=== PATIENT | female | born 1965 | race American Indian/Alaskan Native ===

== ENCOUNTER → 2024-07-16 | Outpatient (BNVA) | payer BC, OTHER, SELFPAY | END | disposition home or self-care (01) | PROVIDERS: PCP Nurse Practitioner Family; Referring Provider Nurse Practitioner Family; Visit Provider Urology | DX: N20.0 Calculus of kidney (principal); E78.00 Pure hypercholesterolemia, unspecified | CPT/HCPCS: 81003; 99212; G0463 ==

== ENCOUNTER → 2024-08-06 | Outpatient (CLI) | payer BC, SELFPAY ==
--- NOTE | 2024-08-06 14:00 | XR_ITS ---
Examination: Breast ultrasound complete, bilateral Date and time of exam: August 06, 2024 1308 hours INDICATIONS: Bilateral breast sonography June 30, 2022 right breast retroareolar nodule 6 x 5 mm Technique: Real-time grayscale ultrasonographic imaging bilateral breasts, including all 4 quadrants as well as nipple retroareolar and axillary regions. Findings: Sonographic images right breast 12:00 cyst 5 x 5 mm 6:00 cystic or solid like area 7 x 8 mm 8:00 cyst 5 x 5 4 mm Retroareolar nodule circumscribed 5 x 4 mm Sonographic images left breast 4:00 cyst 4 x 5 mm No solid nodules Multiple smaller cysts IMPRESSION: Recommend 6 month follow-up right breast sonogram to document stability of 6:00 nodule
--- NOTE | 2024-08-06 15:00 | XR_ITS ---
Examination: Diagnostic digital mammography, bilateral Computer aided detection 3-D breast Tomosynthesis, bilateral Date and time of exam: August 06, 2024 1348 hours INDICATIONS: 6 mm retroareolar nodule right breast on mammogram July 22, 2022 Technique: Nonmagnified MLO, CC views of the breasts to been obtained, reconstructed from 3-D Tomosynthesis images. R2 computer aided detection program utilized for evaluation of suspicious masses and/or abnormal calcifications. 3-D Tomosynthesis images obtained. Findings: The breasts are heterogeneously dense, which may obscure small masses Benign calcifications 5 mm round circumscribed nodule outer right breast on the CC view No suspicious masses Impression: BI-RADS Category 2: Benign findings Recommend yearly follow-up mammography.
== END | disposition home or self-care (01) ==
LOC: CDIM 12:17
PROVIDERS: Referring Provider Physician Assistant; Visit Provider Physician Assistant
DX: R92.323 Mammographic fibroglandular density, bilateral breasts (principal); R92.1 Mammographic calcification found on diagnostic imaging of breast; N63.15 Unspecified lump in the right breast, overlapping quadrants
CPT/HCPCS: 76641; 77062; 77066; G0279

== ENCOUNTER → 2024-08-21 | Outpatient (CLI) | payer BC, OTHER, SELFPAY ==
--- NOTE | 2024-08-21 08:00 | XR_ITS ---
Examination: CT abdomen and pelvis without contrast. Coronal 3-D reconstructions. Sagittal 2-D reconstructions. Date and time of exam:August 21, 2024 0813 hours Comparison May 11, 2023 INDICATIONS: Flank pain history kidney stones months CTDI: vol (mGy): 12.1 DLP: (mGycm): 638 Technique: Axial images of the abdomen have been obtained, 3 mm slice thickness Intravenous contrast material has not been administered. Low dose protocols were performed. One or more of the following dose reduction techniques were used; automated exposure control, adjustment of the mA and/or KV according to patient size, use of iterative reconstruction technique. Findings: Fatty infiltration throughout the liver, 5 cm liver cyst again noted No gallstones No pancreatic mass 2 mm right renal calculus Multiple left renal calculi, the largest in the left renal pelvis 17 mm with mild left hydronephrosis No ureteral calculi No bowel obstruction Normal appendix Colonic diverticulosis No bladder mass or bladder calculi IMPRESSION: Bilateral renal calculi 17 mm calculus in the left renal pelvis with mild left hydronephrosis
== END | disposition home or self-care (01) ==
LOC: CCTX 07:43
PROVIDERS: PCP Physician Assistant; Referring Provider Urology; Visit Provider Urology
DX: N20.0 Calculus of kidney (principal); N13.30 Unspecified hydronephrosis
CPT/HCPCS: 74176

== ENCOUNTER → 2024-08-24 | Outpatient (BNVA) | payer BC, OTHER, SELFPAY | END | disposition home or self-care (01) | PROVIDERS: PCP Physician Assistant; Referring Provider Physician Assistant; Visit Provider Urology | DX: N20.0 Calculus of kidney (principal); E78.00 Pure hypercholesterolemia, unspecified | CPT/HCPCS: 81003; 99212; G0463 ==

== ENCOUNTER → 2025-01-16 | Outpatient (CLI) | payer BC, OTHER, SELFPAY ==
--- NOTE | 2025-01-16 09:00 | XR_ITS ---
Examination: Abdomen sonogram, complete Date and time of exam: January 16, 2025, 0906 hours INDICATIONS: Abdominal pain radiating to the lower back beginning 5 months ago, history left kidney stones. Technique: Multiple real-time grayscale transabdominal sonographic images of the abdomen have been obtained. Findings: Normal gallbladder. Common bile duct 0.6 cm no common bile duct stones Pancreatic head 2.5 cm Aorta not enlarged Liver 15.3 cm fatty infiltration right lobe liver cyst 5.2 cm Normal hepatopedal portal venous flow Patent IVC Right kidney 9.9 cm cortex 1.6 cm Left kidney 10.3 cm cortex 1.6 cm Mild left hydronephrosis Multiple left renal calculi, the largest in the lower pole 17 mm, 12 mm Spleen 8.1 cm IMPRESSION: Normal gallbladder Multiple left renal calculi, mild left hydronephrosis
--- NOTE | 2025-01-16 09:30 | XR_ITS ---
Examination: Transvaginal ultrasound of the pelvis, complete Technique: Transvaginal sonographic images pelvis performed using diez scale imaging Exam date and time: January 16, 2025 0923 hours INDICATIONS: Lower pelvic pain months FINDINGS: Absent uterus Ovaries obscured by bowel gas IMPRESSION: Limited study No solid pelvic mass No free fluid in the pelvis.
== END | disposition home or self-care (01) ==
LOC: CDIM 08:45
PROVIDERS: PCP Physician Assistant; Referring Provider Physician Assistant; Visit Provider Physician Assistant
DX: N13.2 Hydronephrosis with renal and ureteral calculous obstruction (principal); R10.2 Pelvic and perineal pain; Z87.442 Personal history of urinary calculi
CPT/HCPCS: 76700; 76830

== ENCOUNTER → 2025-02-18 | Outpatient (CLI) | payer BC, OTHER, SELFPAY ==
--- NOTE | 2025-02-18 15:03 | XR_ITS ---
Examination: Abdomen AP single view Technique: AP portable supine abdomen, single view Exam date and time: February 18, 2025, 1511 hours INDICATIONS: History of kidney stones with flank pain FINDINGS: Large, 32 mm, staghorn calculus midpole left kidney and smaller calculi lower pole No ureteral calculi depicted IMPRESSION: Multiple left renal calculi
== END | disposition home or self-care (01) ==
PROVIDERS: PCP Physician Assistant; Referring Provider Physician Assistant; Visit Provider Physician Assistant
DX: N20.0 Calculus of kidney (principal)
CPT/HCPCS: 74018

== ENCOUNTER → 2025-02-18 | Outpatient (BNVA) | payer BC, OTHER, SELFPAY | END | disposition home or self-care (01) | PROVIDERS: PCP Nurse Practitioner Family; Referring Provider Nurse Practitioner Family; Visit Provider Physician Assistant | DX: N13.2 Hydronephrosis with renal and ureteral calculous obstruction (principal); Z87.442 Personal history of urinary calculi | CPT/HCPCS: Q3014 ==

== ENCOUNTER 2025-02-22 07:55 | Day surgery (SDC) | payer BC, OTHER, SELFPAY ==
--- NOTE | 2025-02-21 08:50 | EKG_ITS ---
[facility] Test Date: 2025-02-21 Pat Name: TOSHA GLEASON Department: Room: - Gender: Female [place]: VLAD : 1965 Requested By: Param Greenberg Order Number: [id number] Reading MD: Param Greenberg Measurements Intervals [place] Rate: 57 P: 39 NC: 160 QRS: -43 QRSD: 94 T: 70 QT: 408 QTc: 400 Interpretive Statements SINUS BRADYCARDIA MARKED LEFT AXIS DEVIATION [QRS AXIS < -30] PATTERN CONSISTENT WITH PULMONARY DISEASE Compared to ECG 09/20/2018 14:08:20 No significant changes /store/S0/[id number]
[2025-02-21 09:19] VITALS: BMI 33.7
[2025-02-21 10:24] LABS: Alanine Aminotransferase 14 U/L (10-49); Albumin, Serum 4.7 gm/dL (3.4-4.8); Albumin/Globulin Ratio 1.9 (1.2-2.2); Alkaline Phosphatase 112 U/L (46-116); Anion Gap 11 (7-16); Aspartate Amino Transferase 20 U/L (0-34); BUN/Creatinine Ratio 13 Ratio (12-20); Bilirubin,Total 0.4 mg/dL (0.3-1.2); Blood Urea Nitrogen 10 mg/dL (9-23); Calcium 9.8 mg/dL (8.3-10.6); Calcium (Corrected) 9.8 mg/dL (8.5-10.1); Carbon Dioxide 28.3 mMol/L (20.0-31.0); Chloride 107 mMol/L (98-107); Creatinine (Component) 0.8 mg/dL (0.6-1.3); Estimated Creatinine Clearance 77.9 mL/min (>60); Globulin 2.5 gm/dL (2.3-3.5); Glucose 100 mg/dL (74-106); Osmolality,Calculated 289 (275-295); Potassium 4.0 mMol/L (3.4-5.1); Sodium 146 mMol/L (136-145); Total Protein 7.2 gm/dL (5.7-8.2); eGFR > 60 See Note
[2025-02-22] VITALS (7 sets, daily range): BP systolic 123–146; BP diastolic 55–80; PULSE 57–71; RESP 17–19; TEMP 36.4–36.8; O2SAT 96–100; BMI 33.3
--- NOTE | 2025-02-22 08:40 | SUR.PREOP ---
Patient expressed gratitude for prayer before their procedure.
--- NOTE | 2025-02-22 08:40 | XR_ITS ---
EXAMINATION: OR retrograde pyelogram left with without KUB Fluoroscopy 12 spot fluoroscopic films of the abdomen Date and time: February 22, 2025, 1336 hours INDICATIONS: History flank pain, 17 mm calculus in the left renal pelvis with mild left hydronephrosis on CT stone study August 21, 2024 TECHNIQUE AND FINDINGS: 12. Spot fluoroscopic films of the abdomen with opacification of the renal collecting system showing dilatation Fluoroscopy 127 seconds radiation dose 37.5 mGy Left ureteral stent satisfactory position IMPRESSION: Retrograde pyelogram as above
--- NOTE | 2025-02-22 08:40 | SUR.PREOP ---
Patient expressed gratitude for prayer before their procedure.
[2025-02-22] MEDS: RINGERS LACTATED 1000 ML 1,000 ML 20 ML IV (08:54)
[2025-02-22] MEDS: VANCOMYCIN/NS 1 GM IVPB 200 ML IV (08:54)
--- NOTE | 2025-02-22 14:05 | SUR.PHASEI ---
1407 Patient arrived to recovery resting comfortably in [facility], on oxygen 3L via nasal cannula, drowsy and able to arouse with verbal prompting, breathing unlabored, vital signs stable, denies pain, report received from Reinier MAKI and Dr. Fowler
--- NOTE | 2025-02-22 15:10 | SUR.PHASEII ---
1510 Patient meets discharge criteria from recovery, awake and alert, breathing unlabored, vital signs stable, denies pain and nausea, voided in the restroom two times, able to dress herself into her clothing, discharge instructions given to patients and patients , signed discharge instructions. Patient given all her belongings prior to discharge, transported via wheelchair and left in a private vehicle.
--- NOTE | 2025-02-22 17:08 | ESOP_ITS ---
RE: TOSHA GLEASON : 1965 DATE OF OPERATION: 02/22/2025 PREPROCEDURE DIAGNOSES: Obstructing partial staghorn stone, left, and hydronephrosis, left. POSTPROCEDURE DIAGNOSIS: Status post placement of indwelling ureteral stent, left. PROCEDURES PERFORMED: Cystoscopy, retrograde pyelogram under fluoroscopic control, and placement of indwelling ureteral stent, left. SURGEON: Cyril Willoughby MD. [employer] PROFESSOR SURGEON: Katie Stubbs MD. ANESTHESIA: General. INDICATIONS: This patient is a 59-year-old lady who is referred for subspecialty endourology management of complex partial staghorn stone of the left kidney with segmental hydronephrosis of the upper pole. The patient at this point comes for renal decompression. Further treatment will be planned with percutaneous surgery at a later point. We discussed with the patient the indication for treatment especially in view of a possible infected urine in the upper pole and in preparation for percutaneous surgery to obtain urine from the obstructed upper pole and drain the upper pole and treat with appropriate antibiotics if needed. The patient acknowledged of risks benefits and alternatives, consents to this treatment approach. DESCRIPTION OF FINDINGS: Fluoroscopically the partial staghorn stone filling the renal pelvis and lower calyces is readily identified. Endoscopically the bladder mucosa is unremarkable. Retrograde pyelogram shows a normal ureter up to the ureteropelvic junction. Mild distention of the lower pole calyces and moderate to severe distention of the upper pole calyces is noted. An indwelling ureteral stent is placed. Urine from the obstructed upper pole is obtained for culture and sensitivity testing. DESCRIPTION OF PROCEDURE: Prior to initiation of anesthesia the patient is appropriately identified by the surgeon and operating room personnel. The indication for treatment site and scope of treatment are reconfirmed with the patient. The patient received perioperative antibiotics intravenously. After induction of general anesthesia the patient is positioned on the operating table in lithotomy position. The outer genitalia is prepped and draped in a sterile fashion. Cystoscopy is performed using a 21-Andorran cystoscope. Cystoscopy reveals the aforementioned findings. A 5-Andorran angiographic catheter is introduced into the left ureteral orifice over a guidewire. The guidewire is removed and under fluoroscopic control contrast is injected. This shows the aforementioned findings. The guidewire is reintroduced and under fluoroscopic control can be passed by the obstructing renal pelvic stone and into the upper pole. The angiographic catheter follows this guidewire into the upper pole. The guidewire is removed under pressure slightly bloody but otherwise clear urine drains from the upper pole. An aliquot is sent for culture and sensitivity testing. Next a super stiff wire is placed to allow for placement of the decompressing indwelling ureteral stent. This wire is placed through the angiographic catheter. The angiographic catheter is withdrawn and replaced by the indwelling ureteral stent which can be placed with its proximal end in the obstructed upper pole, the distal end is placed correctly in the bladder. The patient is awakened and returned to recovery where she arrived in satisfactory condition. ESTIMATED BLOOD LOSS: Minimal. COMPLICATIONS: None. SPECIMENS: Urine from obstructed left upper pole for culture and sensitivity testing. DISPOSITION: The patient will be discharged home from the outpatient surgical area. Plans will be made to bring the patient back for percutaneous renal stone surgery in the near future. DT: 14:23:56 TT: 17:07:00 Ref: [id number] - TID: [id number] [facility]
== END 2025-02-22 15:10 | disposition home or self-care (01) ==
PROVIDERS: Anesthesiology; Specialist; PCP Physician Assistant; Referring Provider Urology; Visit Provider Urology
PROC: 0TJB8ZZ Inspection of Bladder, Via Natural or Artificial Opening Endoscopic (ICD-10-PCS; CPT 52000; principal; 2025-02-22 10:00)
DX: N13.2 Hydronephrosis with renal and ureteral calculous obstruction (principal); Z01.810 Encounter for preprocedural cardiovascular examination
CPT/HCPCS: 52332; 36415; 74420; 80053; 87086; 93005; A4217; A4314; A4649; C1769; C1894; C2617; J0131; J1100; J1580; J1885; J1938; J2250; J2405; J2704; J3010; J3373; J3490; J7120

== ENCOUNTER 2025-03-11 09:05 | Emergency (ER) | payer BC, OTHER, SELFPAY ==
[2025-03-11 09:06] VITALS: BMI 33.3
[2025-03-11 09:14] VITALS: BP 140/79; PULSE 71; RESP 16; TEMP 36.7; O2SAT 96
--- NOTE | 2025-03-11 09:16 | XR_ITS ---
EXAMINATION: PA chest single view TECHNIQUE: Upright PA chest single view Date and time: February, 0917 hours INDICATIONS: Chest pain today. FINDINGS: Normal heart size Lungs are clear. Osseous structures are intact IMPRESSION: No active disease
--- NOTE | 2025-03-11 09:16 | EKG_ITS ---
[facility] (Formerly [facility]) Test Date: 2025-03-11 Pat Name: TOSHA GLEASON Department: Room: - Gender: Female [place]: : 1965 Requested By: Casey Fletcher Order Number: [id number] Reading MD: Casey Fletcher Measurements Intervals [place] Rate: 74 P: 71 IN: 159 QRS: -55 QRSD: 94 T: 53 QT: 378 QTc: 422 Interpretive Statements SINUS RHYTHM PATTERN CONSISTENT WITH PULMONARY DISEASE LEFT ANTERIOR FASCICULAR BLOCK [QRS AXIS <= -45, QR IN I, RS IN II] Compared to ECG 02/21/2025 09:40:51 Left anterior fascicular block now present Sinus bradycardia no longer present Left-axis deviation no longer present /store/S0/[id number].pdf
--- NOTE | 2025-03-11 09:16 | PD.EDCHEST ---
ED Chest Pain RME/HPI General Chief Complaint: Chest Pain Stated Complaint: L CHEST PAIN, SHOULDER PAIN Time Seen by Provider: 03/11/25 09:10 Source: patient Arrival date/time: 03/11/25 09:05 59-year-old female with a history of hyperlipidemia presents to the emergency room with a chief complaint of 7 out of 10 left-sided sternal chest pain that radiates down her left shoulder and arm x 2 days Mode of arrival: ambulatory Limitations: no limitations Related Data Home Medications ?Medication ?Instructions ?Recorded ?Confirmed amoxicillin 875 mg-potassium 1 tab PO Q12H 02/21/25 02/21/25 clavulanate 125 mg tablet atorvastatin 20 mg tablet 20 mg PO DAILY 02/21/25 02/21/25 Previous Rx's ?Medication ?Instructions ?Recorded tramadol 50 mg tablet 50 mg PO Q8H PRN pain #14 tabs 02/22/25 Allergies Allergy/AdvReac Type Severity Reaction Status Date / Time cephalexin (From Keflex) Allergy Intermediate Hives Verified 02/22/25 08:07 meperidine (From Demerol) Allergy Intermediate Hives Verified 02/22/25 08:07 ofloxacin (From Floxin) Allergy Intermediate Hives Verified 02/22/25 08:07 Review of Systems Review of Systems Systems Reviewed: All systems reviewed, normal except as documented Constitutional Constitutional: Reports system reviewed and no additional complaints, except as documented, Denies fatigue, Denies fever(s), Denies headache(s) and Denies weakness Eyes Eyes: Reports system reviewed and no additional complaints, except as documented, Denies blurry vision and Denies change in vision ENT Ears, Nose, Mouth, and Throat: Reports system reviewed and no additional complaints, except as documented, Denies otalgia, Denies headache(s), Denies nasal congestion, Denies throat swelling and Denies vertigo Cardiovascular Cardiovascular: Reports system reviewed and no additional complaints, except as documented, Reports chest pain, Reports chest pain at rest, Reports chest pain with activity, Denies dyspnea, Denies dyspnea on exertion, Reports palpitations and Reports radiating jaw, neck or arm pain Respiratory Respiratory: Reports system reviewed and no additional complaints, except as documented, Denies chest congestion, Denies cough, Denies dyspnea, Denies dyspnea on exertion and Denies wheezing Gastrointestinal Gastrointestinal: Reports system reviewed and no additional complaints, except as documented, Denies abdominal pain, Denies cramping, Denies nausea and Denies vomiting Genitourinary Genitourinary: Reports system reviewed and no additional complaints, except as documented Musculoskeletal Musculoskeletal: Reports system reviewed and no additional complaints, except as documented and Denies back pain Integumentary/Breasts Skin/Breast: Reports system reviewed and no additional complaints, except as documented and Denies wounds Neurologic Neurologic: Reports system reviewed and no additional complaints, except as documented, Denies confusion, Denies headache(s), Denies lack of coordination, Denies vertigo and Denies weakness Psychiatric Psychiatric: Reports system reviewed and no additional complaints, except as documented, Denies anxiety, Denies confusion, Denies depression, Denies paranoia, Denies suicidal ideation and Denies tactile hallucinations Endocrine Endocrine: Reports system reviewed and no additional complaints, except as documented, Denies fatigue and Reports palpitations Hematologic/Lymphatic Hematologic/Lymphatic: Reports system reviewed and no additional complaints, except as documented and Denies lymphadenopathy Allergic/Immunologic Allergic/Immunologic: Reports system reviewed and no additional complaints, except as documented, Denies throat swelling, Denies urticaria and Denies wheezing ED Exam General Limitations: Present no limitations General appearance: Present alert and in no apparent distress Head Head exam: Present atraumatic Eye Eye exam: Present normal appearance, PERRL and EOMI ENT ENT exam: Present normal exam, normal oropharynx and mucous membranes moist Neck Neck exam: Present normal inspection, full ROM and trachea midline Chest Chest inspection: Present normal inspection and symmetric chest wall rise Respiratory Respiratory exam: Present normal lung sounds bilaterally; Absent respiratory distress, wheezes, stridor, accessory muscle use or prolonged expiratory phase Cardiovascular Cardiovascular exam: Present regular rate, normal rhythm, normal heart sounds, +S1 and +S2; Absent bradycardia, tachycardia, irregular rhythm, systolic murmur, diastolic murmur, rubs, gallop, clicks or JVD Abdominal Exam Abdominal exam: Present soft and normal bowel sounds Extremities Exam Extremities exam: Present normal inspection and full ROM Back Exam Back exam: Present normal inspection and full ROM Neurological Exam Neurological exam: Present alert, oriented X3 and CN II-XII intact Psychiatric Psychiatric exam: Present normal affect and normal mood Skin Skin exam: Present warm, dry, intact and normal color Course Quality Measures none Orders Category Date Time Status EKG (ED ONLY) *Do not use* NOW Care 03/11/25 09:16 Completed EKG (ED Only) Stat Exams 03/11/25 09:16 Draft XR chest 1V portable Stat Exams 03/11/25 09:16 Completed B-Type Natriuretic Peptide Stat Lab 03/11/25 09:31 Completed CBC Stat Lab 03/11/25 09:31 Completed Comprehensive Metabolic Panel Stat Lab 03/11/25 09:31 Completed Drug Screen,Urine Stat Lab 03/11/25 09:16 Completed Free T4 (Free Thyroxine) Stat Lab 03/11/25 09:31 Completed Magnesium Stat Lab 03/11/25 09:31 Completed Partial Thromboplastin Time Stat Lab 03/11/25 09:31 Completed Prothrombin Time with INR Stat Lab 03/11/25 09:31 Completed TSH [Thyroid Stimulating Hormone] Stat Lab 03/11/25 09:31 Completed Troponin I Stat Lab 03/11/25 09:31 Completed Urinalysis, C/S if Indicated Stat Lab 03/11/25 09:56 Completed Urine Culture Stat Lab 03/11/25 09:56 Received Vital Signs Vital signs: Vital Signs Temperature 98.0 F 03/11/25 09:14 Pulse Rate 71 03/11/25 09:14 Respiratory Rate 16 03/11/25 09:14 Blood Pressure 140/79 H 03/11/25 09:14 Pulse Oximetry (%) 96 03/11/25 09:14 Oxygen Delivery Method Room Air 03/11/25 09:14 Chest Pain MDM Narrative MDM Narrative:: 59-year-old female with a history of hyperlipidemia presents to the emergency room with a chief complaint of 7 out of 10 left-sided sternal chest pain that radiates down her left shoulder and arm x 2 days Patient is hemodynamically stable and in no apparent distress Physical examination shows clear bilateral lung sounds there is no wheezing or any abnormal breath sounds The patient has a strong and regular rhythm S1 and S2 noted no murmurs. No JVD, no clicks no gallops EKG shows normal sinus rhythm at [address] deviation. CBC CMP troponin BNP were all within normal limits Chest x-ray was negative for any pneumonic infiltrates Patient was discharged and educated to follow-up with primary care provider in the next 24 to 48 hours and return to the emergency room for any evidence of worsening signs or symptoms Patient data External records reviewed:: [facility] previous records Clinical information provided by:: patient Social determinants that could affect healthcare access:: none Patient has the following chronic illnesses:: Hyperlipidemia How is presenting disease/condition affected by chronic disease/condition?: uneffected by Evaluation data The following diagnostics were reviewed and interpreted by me:: lab results and radiology exam(s) Lab and/or radiology exams considered but not ordered:: Labs and radiology exams considered and ordered Interpretation Summary: Chest [id number]: Normal heart size Lungs are clear. Osseous structures are intact IMPRESSION: No active disease Medications / Prescriptions Medications or Prescriptions considered but not ordered:: No medication given Medication administrations:: No medication given Consultations Consultation(s) initiated? (list below): No Diagnosis Chest Pain Differential Diagnosis: stable angina, unstable angina pectoris, atypical chest pain, st elevation myocardial infarction, costochondritis and chest pain Most likely diagnosis given after review of the tests above:: Chest pain Admission Indicated Admission indicated?: not indicated Admission Request Was there a request for admission?: No Disposition Plan Disposition Plan: Discharge Discharge Attestation Discharge Attestation: The patient and all family members were given an opportunity to ask questions and understood the discharge instructions. Discharge instructions specifically effects, indications for sooner follow up or return to the emergency department, and the expected course of current diagnosis. Patient condition: Stable Discharge Plan Plan Patient Disposition: HOME (Self Care) Discharge Disposition comment: Stable Prescriptions/Referrals Prescriptions/Med Rec: No Action atorvastatin 20 mg tablet 20 mg PO DAILY Patient Comments: TAKE 1 TABLET BY MOUTH EVERY DAY amoxicillin-pot clavulanate 875-125 mg tablet 1 tab PO Q12H Patient Comments: TAKE 1 TABLET BY MOUTH EVERY 12 HOURS tramadol 50 mg tablet 50 mg PO Q8H PRN (Reason: pain) Qty: 14 0RF Referrals: Korey Anthony PA-C [Primary Care Provider] - In 1 week Problem List Clinical Impression: Chest pain Patient/Caregiver Discharge Instructions Education Materials: ED Chest Pain, Noncardiac Additional Instructions: Please follow-up with your primary care provider in the next 24 to 48 hours Your cardiac examination today was within normal limits. Your blood work and urinalysis were within normal limits. Electrocardiogram that we completed today at bedside was within normal limits. For any evidence of worsening signs or symptoms return to emergency room immediately Print Language: Australian Stand Alone Forms: Francesca Award Info., Work/School Release, Patient Portal Info Letter FRANKLIN/EDWIN Supervising Physician ETHAN Supervising Physician: Dr. Comer
[2025-03-11 09:45] LABS: Basophils # (Auto) 0.0 Thou/mm3 (0.0-0.2); Basophils % (Auto) 0 % (0-2.5); Eosinophils # (Auto) 0.1 Thou/mm3 (0.0-0.5); Eosinophils % (Auto) 1 % (0-10); Hematocrit 41.8 % (36.0-46.0); Hemoglobin 13.5 g/dL (12.0-16.0); Immature Granulocytes Auto 0.04 Thou/mm3 (0.00-0.00); Lymphocytes # (Auto) 2.0 Thou/mm3 (1.0-4.8); Lymphocytes % (Auto) 21 % (10-50); Mean Corpuscular HGB Conc 32.3 g/dl (31.0-37.0); Mean Corpuscular Hemoglobin 27.7 pg (25.0-35.0); Mean Corpuscular Volume 86 fL (80-100); Monocytes # (Auto) 0.6 Thou/mm3 (0.0-0.8); Monocytes % (Auto) 6 % (0-12); Neutrophils # (Auto) 7.0 Thou/mm3 (1.8-7.7); Neutrophils % (Auto) 71 % (37-80); Nucleated Red Blood Cell # 0.00 Thou/mm3 (0.00-0.00); Nucleated Red Blood Cell % 0 /100 WBC (0); Platelet Count 333 Thou/mm3 (140-440); RDW Standard Deviation 42.9 fL (36.4-46.3); Red Blood Count 4.87 Miln/mm3 (4.00-5.20); White Blood Count 9.8 Thou/mm3 (3.6-11.0)
[2025-03-11 10:08] LABS: INR 1.0 (0.9-1.3); Partial Thromboplastin Time 24.2 Seconds (22.0-36.0); Prothrombin Time 10.4 Seconds (9.0-12.2)
[2025-03-11 10:11] LABS: Collection Type, Urine Clean Catch
[2025-03-11 10:14] LABS: Alanine Aminotransferase 13 U/L (10-49); Albumin, Serum 4.9 gm/dL (3.4-4.8); Albumin/Globulin Ratio 1.9 (1.2-2.2); Alkaline Phosphatase 121 U/L (46-116); Anion Gap 10 (7-16); Aspartate Amino Transferase 23 U/L (0-34); BUN/Creatinine Ratio 11 Ratio (12-20); Bilirubin,Total 0.7 mg/dL (0.3-1.2); Blood Urea Nitrogen 9 mg/dL (9-23); Calcium 9.7 mg/dL (8.3-10.6); Calcium (Corrected) 9.7 mg/dL (8.5-10.1); Carbon Dioxide 27.3 mMol/L (20.0-31.0); Chloride 105 mMol/L (98-107); Creatinine (Component) 0.8 mg/dL (0.6-1.3); Estimated Creatinine Clearance 77.4 mL/min (>60); Free T4 (Free Thyroxine) 1.01 ng/dL (0.89-1.76); Globulin 2.6 gm/dL (2.3-3.5); Glucose 106 mg/dL (74-106); Magnesium 1.8 mg/dL (1.6-2.6); Osmolality,Calculated 281 (275-295); Potassium 4.1 mMol/L (3.4-5.1); Sodium 142 mMol/L (136-145); Thyroid Stimulating Hormone 1.34 uIU/mL (0.55-4.78); Total Protein 7.5 gm/dL (5.7-8.2); Troponin I < 0.002 ng/mL (0.0-0.045); eGFR > 60 See Note
[2025-03-11 10:42] LABS: Bacteria,Urine Rare; Bilirubin,Urine Negative (Negative); Blood,Urine 1+ (Negative); Color,Urine Lt-Yellow (Lt Yel-Yel); Glucose, Urine Negative (Negative); Ketones,Urine Negative (Negative); Leukocyte Esterase,Urine Positive (Negative); Nitrite,Urine Negative (Negative); PH,Urine 7.0 (5.0-7.0); Protein,Urine Trace (Neg - Trace); RBC,Urine 21 /hpf (0-3); Specific Gravity,Urine 1.014 (1.001-1.035); Squamous Epithelial Cell,Urine 3 /hpf (0-5); Urobilinogen,Urine Negative mg/dL (0.0-1.0); WBC,Urine 58 /hpf (0-5)
[2025-03-11 10:50] LABS: Clarity,Urine Hazy (Clear/Hazy); Culture Indicated,Urine Yes
[2025-03-11 11:07] LABS: Amphetamine/Methamp Scrn,U Negative (Negative); Barbiturate Screen,Urine Negative (Negative); Benzodiazepines Screen,Urine Negative (Negative); Benzoylecgonine Screen, Ur Negative (Negative); Fentanyl Screen,Urine Negative (Negative); Opiate Screen,Urine Negative (Negative); THC Screen,Urine Negative (Negative)
[2025-03-11 11:40] LABS: B-Type Natriuretic Peptide < 20 pg/mL (0-100)
== END 2025-03-11 12:13 | disposition home or self-care (01) ==
PROVIDERS: Nurse Practitioner Family; Emergency Provider Emergency Medicine; PCP Physician Assistant
DX: R07.2 Precordial pain (principal); I44.4 Left anterior fascicular block; E78.5 Hyperlipidemia, unspecified
CPT/HCPCS: 36415; 71045; 80053; 80307; 81001; 83735; 83880; 84439; 84443; 84484; 85025; 85610; 85730; 87086; 93005; 99283

== ENCOUNTER → 2025-03-14 | Outpatient (CLI) | payer BC, OTHER, SELFPAY ==
--- NOTE | 2025-03-14 09:38 | XR_ITS ---
Examination: Shoulder, left, 3 views Technique: Shoulder AP internal rotation, AP external rotation, Y view shoulder, 3 views Exam date and time : March 14, 2025, 0944 hours, comparison October 30, 2022 INDICATIONS: Left shoulder pain beginning 3 days ago FINDINGS: Moderate left shoulder osteoarthritis No shoulder fracture or dislocation No calcific tendinitis IMPRESSION: Moderate left shoulder osteoarthritis
== END | disposition home or self-care (01) ==
LOC: CDIM 09:30
PROVIDERS: PCP Physician Assistant; Referring Provider Physician Assistant; Visit Provider Physician Assistant
DX: M19.012 Primary osteoarthritis, left shoulder (principal)
CPT/HCPCS: 73030

== ENCOUNTER → 2025-04-03 | Outpatient (CLI) | payer BC, OTHER, SELFPAY | END | disposition home or self-care (01) | PROVIDERS: PCP Physician Assistant; Referring Provider Urology; Visit Provider Urology | DX: N39.0 Urinary tract infection, site not specified (principal) | CPT/HCPCS: 87086 ==

== ENCOUNTER 2025-04-11 05:45 | Day surgery (SDC) | payer BC, OTHER, SELFPAY ==
[2025-04-10 11:30] VITALS: BMI 32.8
[2025-04-10 12:46] LABS: Alanine Aminotransferase 14 U/L (10-49); Albumin, Serum 4.9 gm/dL (3.4-4.8); Albumin/Globulin Ratio 1.6 (1.2-2.2); Alkaline Phosphatase 128 U/L (46-116); Anion Gap 12 (7-16); Aspartate Amino Transferase 18 U/L (0-34); BUN/Creatinine Ratio 14 Ratio (12-20); Bilirubin,Total 0.4 mg/dL (0.3-1.2); Blood Urea Nitrogen 10 mg/dL (9-23); Calcium 9.8 mg/dL (8.3-10.6); Calcium (Corrected) 9.8 mg/dL (8.5-10.1); Carbon Dioxide 28.0 mMol/L (20.0-31.0); Chloride 105 mMol/L (98-107); Creatinine (Component) 0.7 mg/dL (0.6-1.3); Estimated Creatinine Clearance 91.1 mL/min (>60); Globulin 3.0 gm/dL (2.3-3.5); Glucose 99 mg/dL (74-106); Osmolality,Calculated 287 (275-295); Potassium 4.2 mMol/L (3.4-5.1); Sodium 145 mMol/L (136-145); Total Protein 7.9 gm/dL (5.7-8.2); eGFR > 60 See Note
[2025-04-11] VITALS (9 sets, daily range): BP systolic 113–137; BP diastolic 61–79; PULSE 54–75; RESP 12–21; TEMP 36.1–36.2; O2SAT 96–100; BMI 32.2
[2025-04-11] MEDS: RINGERS LACTATED 1000 ML 1,000 ML 20 ML IV (07:30)
--- NOTE | 2025-04-11 07:30 | XR_ITS ---
EXAMINATION: Retrograde pyelogram left with without KUB Fluoroscopy 10 spot fluoroscopic films of the abdomen Date and time: April 11, 2025, 1059 hours, comparison February 22, 2025 INDICATIONS: History left flank pain, history left hydronephrosis on CT study August 21, 2024 17 mm calculus in the left renal pelvis, laser lithotripsy stone manipulation and stent placement today FINDINGS: 10 spot fluoroscopic films of the abdomen demonstrating dilated renal calyces Left ureteral stent satisfactory position IMPRESSION: Retrograde pyelogram as above Fluoroscopy 2 minutes 2 seconds 10 spot fluoroscopic abdomen films Radiation dose 30.073 mGy
[2025-04-11] MEDS: VANCOMYCIN/NS 1 GM IVPB 200 ML IV (07:31)
--- NOTE | 2025-04-11 12:31 | SUR.PHASEI ---
Pt. arrived to recovery via gurney, eyes closed, responds to verbal commands, VSS, lung sounds clear with rhonchi noted on inspiration, pt. receiving 8 liters 02 via oxymask, report received from Reinier MAKI and Dr. Mascorro.
--- NOTE | 2025-04-11 12:42 | SUR.PHASEI ---
1242: Pt. wakes to name, then drifts back to sleep, vitals stable, breathing unlabored, no complaint of pain or nausea, no dressing in place, no active bleed noted, report received from Chana MAKI.
[2025-04-11] MEDS: fentaNYL CIT INJ 50 mCg/ML AMP 2ML 25 MCG IVP ×3 (13:01→13:20)
[2025-04-11] MEDS: ONDANSETRON INJ 2 MG/ML INJ 2 ML 4 MG IVP (13:23)
--- NOTE | 2025-04-11 13:55 | SUR.PHASEII ---
1355: Pt. AAOx4, vitals stable, breathing unlabored, no complaint of pain or nausea, no dressing in place, pt. able to void hematuria, no visible clots noted in urine, pt. tolerated sips of water well, pt. ambulated to wheelchair with steady gait and no assist, no complications. Gave discharge instructions to the pt. and her ride, both verbalized understanding and had no further questions. Pt. left with all personal belongings.
--- NOTE | 2025-04-11 15:43 | ESOP_ITS ---
RE: TOSHA GLEASON : 1965 DATE OF OPERATION: 04/11/2025 PREPROCEDURE DIAGNOSES: Partial staghorn stone left kidney. Segmental hydronephrosis upper pole calyces. Indwelling ureteral stent left. POSTPROCEDURE DIAGNOSIS: Status post retrograde intrarenal surgery stage I left. PROCEDURE PERFORMED: 1. Fluoroscopic imaging of upper urinary tract. 2. Cystoscopy. 3. Retrograde pyelogram under fluoroscopic control left. 4. Retrograde intrarenal surgery with laser stone fragmentation and stone vaporization. 5. Placement of indwelling ureteral stent left. SURGEON: Cyril Willoughby MD. BOILERMAKER APPRENTICE SURGEON: Katie Stubbs MD. ANESTHESIA: General. 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 In a previous treatment session the patient had an indwelling stent placed to decompress the obstructed upper pole calyces. At this point the patient comes for possible percutaneous surgery possibly combined with retrograde intrarenal surgery to treat the complex left renal stones. This was discussed with the patient in detail along with risks, benefits, and alternatives and the proper consent is obtained. DESCRIPTION OF FINDINGS: Fluoroscopically the stones are readily identified with the indwelling ureteral stent seen in correct position with the proximal end in the dilated upper pole and the distal end in the bladder. Endoscopically bladder mucosa is unremarkable. Percutaneous surgery is actually attempted as planned but it is apparent that the appropriate Chiba needles for percutaneous access are not available. Therefore plan B is utilized which is access in a retrograde fashion for laser treatment. Retrograde pyelogram is obtained which shows an unobstructed ureter. The stones in the renal collecting system are identified as filling defects. The upper pole is still chronically dilated. After placement of a working and safety wires ureteral access sheath is utilized and then stone fragmentation is performed initially using thulium laser and as that laser energy is not sufficient to really break the stone, about two-thirds into the procedure holmium energy is utilized which has much better fragmentation efficiency. At the conclusion of the procedure, a stent is placed. PROCEDURE: Prior to initiation of anesthesia, patient is appropriately identified by the surgeon and operating room personnel. The indication for surgery, site, and scope of surgery are reconfirmed with the patient. Patient received perioperative antibiotics intravenously. After induction of general anesthesia patient is positioned on the endoscopy table in lithotomy position. The outer genitalia was prepped and draped in sterile fashion. Cystoscopy was performed using a 21-Fijian instrument. The cystoscopy shows a normal bladder mucosa. The indwelling stent is seen protruding from the left ureteral orifice. A 5-Fijian angiographic catheter is introduced into the left ureteral orifice over a guidewire under fluoroscopic control and the guidewire can be advanced up into the kidney and can be guided into the dilated upper pole. The indwelling stent is then removed and checked for completeness. The patient received 20 mg of Lasix intravenously to induce diuresis and reduce the risk of pyelovenous reflux and infectious complications with this surgical procedure. Next, a dual lumen catheter is utilized and an access sheath is placed. Retrograde intrarenal surgery is performed initially using thulium energy. Initially the assemble stone in the renal pelvis responds well to the laser energy but the stones in the calyces do not respond well to this energy even with increasing the energy to the limit of the normal level. Good stone fragmentation is not noted, therefore the holmium laser is utilized and with stone fragmentation setting, the remainder of the stone can be fragmented. This is accomplished. A contrast is again injected confirming the integrity of the left upper urinary tract. An indwelling stent is placed over the safety wire under fluoroscopic and endoscopic control, positioned correctly in kidney and bladder. Bladder is emptied. Patient is awakened and returned to recovery where she arrived in satisfactory condition. ESTIMATED BLOOD LOSS FROM THE PROCEDURE: Minimal. COMPLICATIONS: None. SPECIMEN: None obtained. DISPOSITION: The patient will be discharged home from the outpatient surgical area. A second procedure will be necessary in about 4-6 weeks' time. DT: 14:54:55 TT: 15:41:00 Ref: [id number] - TID: [id number]
== END 2025-04-11 13:55 | disposition home or self-care (01) ==
PROVIDERS: Anesthesiology; PCP Physician Assistant; Referring Provider Urology; Visit Provider Specialist
PROC: 0TJB8ZZ Inspection of Bladder, Via Natural or Artificial Opening Endoscopic (ICD-10-PCS; CPT 52000; principal; 2025-04-11 07:30)
PROC: (CPT 52356; 2025-04-11 07:30)
DX: N13.2 Hydronephrosis with renal and ureteral calculous obstruction (principal)
CPT/HCPCS: 52356; 36415; 74420; 80053; 82365; A4217; A4314; A4649; C1729; C1747; C1769; C1889; C1894; C2617; J0131; J1580; J2250; J2405; J2704; J3010; J3373; J3490; J7120; A4646